=== PATIENT | female | born 1990 | race African-American/Black ===

== ENCOUNTER 2017-09-25 16:36 | Emergency (ER) | payer MEDICAID ==
[~2017-09-25] VITALS: Ht 170.2 cm; Wt 146.0 kg
[~2017-09-25 16:36] MED LIST: NAPR-56 PO; NO HOME MEDS
[2017-09-25 17:30] LABS: BASOPHILS # (AUTO) 0.1 X10'3 (0-0.2); BASOPHILS % (AUTO) 0.6 % (0-1); EOSINOPHILS # (AUTO) 0.2 X10'3 (0-0.9); EOSINOPHILS % (AUTO) 1.5 % (0-6); HEMATOCRIT 39.1 % (35.0-45.0); HEMOGLOBIN 13.1 g/dl (12.0-16.0); LYMPHOCYTES # (AUTO) 3.3 X10'3 (1.1-4.8); LYMPHOCYTES % (AUTO) 27.2 % (21-51); MEAN CORPUSCULAR HEMOGLOBIN 25.5 PG (27.0-31.0); MEAN CORPUSCULAR HGB CONC 33.4 % (33.0-36.5); MEAN CORPUSCULAR VOLUME 76.4 FL (78-98); MEAN PLATELET VOLUME 6.4 FL (7.4-10.4); MONOCYTES % (AUTO) 7.9 % (2-12); NEUTROPHILS # (AUTO) 7.6 X10'3 (1.8-7.7); NEUTROPHILS % (AUTO) 62.8 % (42-75); PLATELET COUNT 352 X10'3 (140-440); RED BLOOD COUNT 5.11 X10'6 (4.20-5.60); RED CELL DISTRIBUTION WIDTH 16.3 % (11.5-14.5); WHITE BLOOD COUNT 12.1 X10'3 (4.5-11.0)
[2017-09-25 17:34] LABS: URINE HCG NEGATIVE (NEG)
[2017-09-25] MEDS ORDERED: ondansetron/PF 4mg/2ml inj IV ONE (17:35)
[2017-09-25] MEDS ORDERED: morphine 5 MG/ML injection IV ONE (17:35)
[2017-09-25] MEDS ORDERED: normal saline 1000ML IV soln IVB ONE (17:35)
[2017-09-25 17:38] LABS: CLARITY,URINE CLEAR (Clear); COLOR,URINE YELLOW (Yellow); GLUCOSE, URINE NEGATIVE (Neg); KETONES,URINE TRACE mg/dl (Neg); LEUKOCYTE ESTERASE ,URINE NEGATIVE (Neg); NITRITES, URINE NEGATIVE (Neg); OCCULT BLOOD,URINE MODERATE (Neg); PROTEIN,URINE TRACE mg/dl (Neg)
[2017-09-25 17:40] LABS: INR 1.1 INR
[2017-09-25 17:41] LABS: UA COLLECTION TYPE NON-SPECIFIED
[2017-09-25 17:42] LABS: BACTERIA,URINE FEW /HPF (Neg); MUCUS STRANDS MODERATE /LPF (Neg); SQUAMOUS EPITHELIAL CELL,UR MODERATE /LPF (FEW); WBC,URINE 0-4 /HPF (0-4)
[2017-09-25 17:49] LABS: ALANINE AMINOTRANSFERASE 32 U/L (12-78); ALBUMIN 3.2 G/DL (3.4-5.0); ALBUMIN/GLOBULIN RATIO 0.7 (1.1-1.5); ALKALINE PHOSPHATASE 132 IU/L (46-116); ANION GAP 9 (8-16); ASPARTATE AMINO TRANSFERASE 14 U/L (10-37); BILIRUBIN,TOTAL 0.3 MG/DL (0.1-1.0); BLOOD UREA NITROGEN 10 MG/DL (7-18); BUN/CREATININE RATIO 11.1 (6.6-38.0); CALCIUM 9.1 MG/DL (8.5-10.1); CHLORIDE 110 MMOL/L (99-107); GLUCOSE 106 MG/DL (70-104); SODIUM 147 MMOL/L (135-145); TOTAL CARBON DIOXIDE 28.3 MMOL/L (24-32); TOTAL PROTEIN 7.8 G/DL (6.4-8.2); eGFR > 90 ML/MIN
[2017-09-25] MEDS ORDERED: morphine 2 MG/ML inj. syringe IV ONE (18:15)
[2017-09-25] MEDS ORDERED: doxycycline hyclate 100mg tablet.DR PO STA (18:49)
[2017-09-25] MEDS ORDERED: CefTRIAXone 250MG IM Kit w/LIDOcaine IM ONE (18:50)
[2017-09-25] MEDS ORDERED: DOXY100C43 PO (18:53)
[2017-09-25 19:43] VITALS: BP 117/62
== END 2017-09-25 20:00 | disposition home or self-care (01) ==
LOC: ER 16:37
DX: N73.9 Female pelvic inflammatory disease, unspecified (principal); Z88.6 Allergy status to analgesic agent; Z88.1 Allergy status to other antibiotic agents; Z88.0 Allergy status to penicillin
CPT/HCPCS: 36415; 80053; 81001; 81025; 85025; 85610; 87210; 87491; 87591; 96361; 96372; 96374; 99284; J0696; J2270; J2405

== ENCOUNTER 2017-09-26 21:19 | Emergency (ER) | payer MEDICAID ==
[~2017-09-26] VITALS: Ht 170.2 cm; Wt 147.0 kg
[~2017-09-26 21:19] MED LIST changes: +DOXY100C43 PO
[2017-09-26 23:21] LABS: HEMATOCRIT 39.4 % (35.0-45.0); HEMOGLOBIN 13.1 g/dl (12.0-16.0); MEAN CORPUSCULAR HEMOGLOBIN 25.8 PG (27.0-31.0); MEAN CORPUSCULAR HGB CONC 33.3 % (33.0-36.5); MEAN CORPUSCULAR VOLUME 77.5 FL (78-98); MEAN PLATELET VOLUME 6.4 FL (7.4-10.4); PLATELET COUNT 317 X10'3 (140-440); RED BLOOD COUNT 5.08 X10'6 (4.20-5.60); RED CELL DISTRIBUTION WIDTH 16.4 % (11.5-14.5); WHITE BLOOD COUNT 11.3 X10'3 (4.5-11.0)
[2017-09-26 23:35] LABS: ALANINE AMINOTRANSFERASE 30 U/L (12-78); ALBUMIN 3.1 G/DL (3.4-5.0); ALBUMIN/GLOBULIN RATIO 0.7 (1.1-1.5); ALKALINE PHOSPHATASE 130 IU/L (46-116); ANION GAP 7 (8-16); ASPARTATE AMINO TRANSFERASE 13 U/L (10-37); BILIRUBIN,TOTAL 0.3 MG/DL (0.1-1.0); BLOOD UREA NITROGEN 9 MG/DL (7-18); CHLORIDE 105 MMOL/L (99-107); GLUCOSE 127 MG/DL (70-104); POTASSIUM 3.5 MMOL/L (3.5-5.1); SODIUM 140 MMOL/L (135-145); TOTAL CARBON DIOXIDE 27.6 MMOL/L (24-32); TOTAL PROTEIN 7.4 G/DL (6.4-8.2); eGFR > 90 ML/MIN
[2017-09-26 23:55] LABS: TOTAL CELLS COUNTED 100
[2017-09-26 23:57] LABS: ANISOCYTOSIS 1+; PLATELET ESTIMATE NORMAL
[2017-09-26 23:58] LABS: SMUDGE CELLS FEW; TOXIC GRANULATION 1+
[2017-09-26 23:59] LABS: MICROCYTOSIS 1+
[2017-09-27] MEDS: normal saline 1000ML IV soln IVB ONE (00:10)
[2017-09-27] MEDS: ondansetron/PF 4mg/2ml inj IV ONE (00:11)
[2017-09-27] MEDS ORDERED: iohexol 300mg/ml 100ml inj. ONE (00:15)
[2017-09-27] MEDS: ibuprofen tablet 400 MG TABLET PO ONE (01:25)
[2017-09-27] MEDS: acetaminophen 325mg tablet PO ONE (01:25)
[2017-09-27 01:31] VITALS: BP 125/73
== END 2017-09-27 01:32 | disposition home or self-care (01) ==
LOC: ER 21:20
DX: N73.9 Female pelvic inflammatory disease, unspecified (principal); Z98.890 Other specified postprocedural states; Z88.0 Allergy status to penicillin; Z88.6 Allergy status to analgesic agent; Z88.1 Allergy status to other antibiotic agents; Z56.0 Unemployment, unspecified
CPT/HCPCS: 36415; 74177; 76830; 76856; 80053; 83605; 85025; 96361; 96374; 99285; J2405; J7030; Q9967

== ENCOUNTER 2018-03-15 18:26 | Emergency (ER) | payer MEDICAID ==
[~2018-03-15] VITALS: Ht 170.2 cm; Wt 127.5 kg
[~2018-03-15 18:26] MED LIST changes: -DOXY100C43 PO
[2018-03-15 18:29] VITALS: BP 131/73
[2018-03-15 20:16] LABS: URINE HCG NEGATIVE (NEG)
[2018-03-15] MEDS ORDERED: CYCL-1 PO (20:48)
[2018-03-15] MEDS ORDERED: IBUP-1984 PO (20:48)
== END 2018-03-15 20:57 | disposition home or self-care (01) ==
LOC: ER 18:27
DX: M54.5 Low back pain (principal); F17.200 Nicotine dependence, unspecified, uncomplicated; Z56.0 Unemployment, unspecified; Z90.89 Acquired absence of other organs; Z88.0 Allergy status to penicillin; Z88.1 Allergy status to other antibiotic agents; Z88.6 Allergy status to analgesic agent; Z79.899 Other long term (current) drug therapy
CPT/HCPCS: 72100; 81025; 99285

== ENCOUNTER 2018-09-29 15:11 | Emergency (ER) | payer MEDICAID ==
[~2018-09-29] VITALS: Ht 170.2 cm; Wt 131.8 kg
[~2018-09-29 15:11] MED LIST changes: +CYCL-1 PO
[2018-09-29 15:37] VITALS: BP 108/92
[2018-09-29] MEDS ORDERED: CLIN150C8 PO (18:51)
[2018-09-29] MEDS ORDERED: HYDROcodone/acetaminophen 10/325mg tab PO ONE (18:55)
== END 2018-09-29 19:11 | disposition home or self-care (01) ==
LOC: ER 15:12
DX: K08.89 Other specified disorders of teeth and supporting structures (principal); R11.0 Nausea; R42 Dizziness and giddiness; R50.9 Fever, unspecified; Z56.0 Unemployment, unspecified; Z88.6 Allergy status to analgesic agent; Z88.1 Allergy status to other antibiotic agents; Z88.0 Allergy status to penicillin
CPT/HCPCS: 99283

== ENCOUNTER 2019-01-05 09:23 | Emergency (ER) | payer MEDICAID ==
[~2019-01-05] VITALS: Ht 170.2 cm; Wt 113.0 kg
[~2019-01-05 09:23] MED LIST changes: +CLIN150C8 PO
[2019-01-05 10:12] LABS: BASOPHILS # (AUTO) 0.1 X10'3 (0-0.2); BASOPHILS % (AUTO) 0.7 % (0-1); EOSINOPHILS # (AUTO) 0.4 X10'3 (0-0.9); EOSINOPHILS % (AUTO) 5.2 % (0-6); HEMATOCRIT 38.7 % (35.0-45.0); LYMPHOCYTES # (AUTO) 2.7 X10'3 (1.1-4.8); LYMPHOCYTES % (AUTO) 32.3 % (21-51); MEAN CORPUSCULAR HEMOGLOBIN 27.8 PG (27.0-31.0); MEAN CORPUSCULAR HGB CONC 33.6 g/dL (33.0-36.5); MEAN PLATELET VOLUME 6.4 FL (7.4-10.4); MONOCYTES # (AUTO) 0.6 X10'3 (0-0.9); MONOCYTES % (AUTO) 7.7 % (2-12); NEUTROPHILS # (AUTO) 4.5 X10'3 (1.8-7.7); NEUTROPHILS % (AUTO) 54.1 % (42-75); PLATELET COUNT 292 X10'3 (140-440); RED BLOOD COUNT 4.66 X10'6 (4.20-5.60); RED CELL DISTRIBUTION WIDTH 14.9 % (11.5-14.5); WHITE BLOOD COUNT 8.3 X10'3 (4.5-11.0)
[2019-01-05] MEDS ORDERED: IBUP-1986 PO (10:12)
[2019-01-05 10:22] LABS: INR 1.1 INR
[2019-01-05 10:23] LABS: ALANINE AMINOTRANSFERASE 21 U/L (12-78); ALBUMIN 3.3 G/DL (3.4-5.0); ALBUMIN/GLOBULIN RATIO 0.9 (1.1-1.5); ALKALINE PHOSPHATASE 119 IU/L (46-116); ANION GAP 7 (8-16); ASPARTATE AMINO TRANSFERASE 12 U/L (10-37); BILIRUBIN,TOTAL 0.4 MG/DL (0.1-1.0); BLOOD UREA NITROGEN 10 MG/DL (7-18); BUN/CREATININE RATIO 13.9 (6.6-38.0); CHLORIDE 106 MMOL/L (99-107); CREATININE 0.72 MG/DL (0.40-0.90); GLUCOSE 91 MG/DL (70-104); SODIUM 138 MMOL/L (135-145); TOTAL CARBON DIOXIDE 25.3 MMOL/L (24-32); TOTAL PROTEIN 7.1 G/DL (6.4-8.2); eGFR > 90 ML/MIN
[2019-01-05 10:23] LABS: CLARITY,URINE CLEAR (Clear); COLOR,URINE STRAW (Yellow); GLUCOSE, URINE NEGATIVE (Neg); KETONES,URINE NEGATIVE (Neg); LEUKOCYTE ESTERASE ,URINE NEGATIVE (Neg); NITRITES, URINE NEGATIVE (Neg); OCCULT BLOOD,URINE TRACE-INTACT (Neg); PH,URINE 5.5 (4.8-8.0); PROTEIN,URINE NEGATIVE (Neg); URINE HCG NEGATIVE (NEG); UROBILINOGEN,URINE 0.2 E.U/dL (0.2-1.0)
[2019-01-05 10:34] LABS: UA COLLECTION TYPE CLN CATCH MIDSTREAM
[2019-01-05 10:35] LABS: BACTERIA,URINE FEW /HPF (Neg); RBC,URINE 0-2 /HPF (0-2); SQUAMOUS EPITHELIAL CELL,UR FEW /LPF (FEW); WBC,URINE 0-4 /HPF (0-4)
[2019-01-05] MEDS ORDERED: morphine 4 MG/ML inj SYRINge IV ONE (10:40)
[2019-01-05] MEDS ORDERED: iohexol 300mg/ml 100ml inj. ONE (10:40)
[2019-01-05] MEDS ORDERED: diphenhydrAMINE 50 mg/ml inj IV ONE (11:05)
[2019-01-05 11:28] VITALS: BP 116/76
== END 2019-01-05 11:29 | disposition home or self-care (01) ==
LOC: ER 09:24
DX: R10.32 Left lower quadrant pain (principal); R11.10 Vomiting, unspecified; R20.0 Anesthesia of skin; F12.90 Cannabis use, unspecified, uncomplicated; Z56.0 Unemployment, unspecified; Z88.6 Allergy status to analgesic agent; Z88.1 Allergy status to other antibiotic agents; Z88.0 Allergy status to penicillin
CPT/HCPCS: 36415; 74177; 80053; 81001; 81025; 85025; 85610; 96374; 96375; 99284; J1200; J2270; Q9967

== ENCOUNTER 2022-10-04 12:24 | Emergency (ER) | payer MEDICAID ==
[~2022-10-04] VITALS: Ht 170.2 cm; Wt 145.0 kg
[~2022-10-04 12:24] MED LIST changes: -CLIN150C8 PO; -CYCL-1 PO; +IBUP-1986 PO; -NAPR-56 PO; -NO HOME MEDS
[2022-10-04 13:32] VITALS: BP 116/67
[2022-10-04] MEDS ORDERED: HYDROcodone/acetaminophen 5mg/325mg tablet PO ONE (14:50)
[2022-10-04] MEDS ORDERED: HYDR-3965 PO (14:59)
== END 2022-10-04 15:10 | disposition home or self-care (01) ==
LOC: ER 12:25
DX: M25.551 Pain in right hip (principal); M25.561 Pain in right knee; F12.90 Cannabis use, unspecified, uncomplicated; F31.9 Bipolar disorder, unspecified; Z56.0 Unemployment, unspecified; Z72.89 Other problems related to lifestyle; Z90.89 Acquired absence of other organs; Z88.0 Allergy status to penicillin; Z88.1 Allergy status to other antibiotic agents; Z88.6 Allergy status to analgesic agent; Z79.899 Other long term (current) drug therapy; W18.39XA Other fall on same level, initial encounter; Y93.89 Activity, other specified; Y92.89 Other specified places as the place of occurrence of the external cause; Y99.8 Other external cause status
CPT/HCPCS: 73502; 73564; 99284; A6449

== ENCOUNTER 2022-12-30 11:35 | Emergency (ER) | payer MEDICAID ==
[~2022-12-30] VITALS: Ht 170.2 cm; Wt 130.6 kg
[2022-12-30 12:11] VITALS: BP 134/70
[2022-12-30] MEDS ORDERED: morphine 2 MG/ML inj. syringe IV ONE (12:25)
[2022-12-30] MEDS ORDERED: ondansetron/PF 4mg/2ml inj IV ONE (12:25)
[2022-12-30 12:27] LABS: CLARITY,URINE CLEAR (Clear); COLOR,URINE YELLOW (Yellow); GLUCOSE, URINE NEGATIVE (Neg); KETONES,URINE NEGATIVE (Neg); LEUKOCYTE ESTERASE ,URINE NEGATIVE (Neg); NITRITES, URINE NEGATIVE (Neg); OCCULT BLOOD,URINE TRACE-INTACT (Neg); PROTEIN,URINE NEGATIVE (Neg); UROBILINOGEN,URINE 0.2 E.U/dL (0.2-1.0)
[2022-12-30 12:28] LABS: URINE HCG NEGATIVE (NEG)
[2022-12-30 12:35] LABS: UA COLLECTION TYPE CLN CATCH MIDSTREAM
[2022-12-30 12:36] LABS: BACTERIA,URINE FEW /HPF (Neg); MUCUS STRANDS NONE SEEN /LPF (Neg); RBC,URINE 0-2 /HPF (0-2); SQUAMOUS EPITHELIAL CELL,UR MODERATE /LPF (FEW); WBC,URINE 0-4 /HPF (0-4)
[2022-12-30 13:53] LABS: BASOPHILS % (AUTO) 0.6 % (0-1); EOSINOPHILS # (AUTO) 0.2 X10'3 (0-0.9); EOSINOPHILS % (AUTO) 2.1 % (0-6); HEMATOCRIT 36.8 % (35.0-45.0); HEMOGLOBIN 11.7 g/dl (12.0-16.0); LYMPHOCYTES # (AUTO) 3.1 X10'3 (1.1-4.8); LYMPHOCYTES % (AUTO) 43.6 % (21-51); MEAN CORPUSCULAR HEMOGLOBIN 24.5 PG (27.0-31.0); MEAN CORPUSCULAR HGB CONC 31.9 g/dL (33.0-36.5); MEAN CORPUSCULAR VOLUME 76.7 FL (78-98); MEAN PLATELET VOLUME 6.3 FL (7.4-10.4); MONOCYTES # (AUTO) 0.6 X10'3 (0-0.9); MONOCYTES % (AUTO) 8.4 % (2-12); NEUTROPHILS # (AUTO) 3.2 X10'3 (1.8-7.7); NEUTROPHILS % (AUTO) 45.3 % (42-75); PLATELET COUNT 298 X10'3 (140-440); RED CELL DISTRIBUTION WIDTH 16.2 % (11.5-14.5)
[2022-12-30 14:07] LABS: ALANINE AMINOTRANSFERASE 30 U/L (12-78); ALBUMIN/GLOBULIN RATIO 0.8 (1.1-1.5); ALKALINE PHOSPHATASE 100 IU/L (46-116); ANION GAP 8 (8-16); ASPARTATE AMINO TRANSFERASE 19 U/L (10-37); BILIRUBIN,TOTAL 0.3 MG/DL (0.1-1.0); BLOOD UREA NITROGEN 7 MG/DL (7-18); BUN/CREATININE RATIO 10.1 (10.0-20.0); CALCIUM 8.8 MG/DL (8.5-10.1); CHLORIDE 106 MMOL/L (99-107); CREATININE 0.69 MG/DL (0.40-0.90); GLUCOSE 96 MG/DL (70-104); POTASSIUM 3.4 MMOL/L (3.5-5.1); SODIUM 142 MMOL/L (135-145); TOTAL CARBON DIOXIDE 27.7 MMOL/L (24-32); eGFR > 90 ML/MIN
[2022-12-30 14:15] LABS: BETA HCG,QUANTITATIVE < 1.0 mIU/ml; LIPASE 115 U/L (73-393)
[2022-12-30 14:17] LABS: BILIRUBIN,DIRECT 0.1 MG/DL (0-0.3)
[2022-12-30] MEDS ORDERED: ONDA4TAB12 PO (18:22)
[2022-12-30] MEDS ORDERED: HYDR-3965 PO (18:22)
== END 2022-12-30 18:39 | disposition home or self-care (01) ==
LOC: ER 11:36
DX: R10.11 Right upper quadrant pain (principal); F31.9 Bipolar disorder, unspecified; F12.90 Cannabis use, unspecified, uncomplicated; Z88.0 Allergy status to penicillin; Z88.1 Allergy status to other antibiotic agents; Z56.0 Unemployment, unspecified
CPT/HCPCS: 36415; 74176; 76700; 80053; 81001; 81025; 82248; 83690; 84145; 84702; 85025; 96374; 96375; 99285; J2270; J2405

== ENCOUNTER 2023-04-18 17:22 | Emergency (ER) | payer OTHER, MEDICAID ==
[~2023-04-18] VITALS: Ht 170.2 cm; Wt 137.6 kg
[~2023-04-18 17:22] MED LIST changes: +ONDA4TAB12 PO
[2023-04-18 17:28] VITALS: TEMP 98.3
[2023-04-18] MEDS ORDERED: acetaminophen 325mg tablet PO ONE (19:55)
[2023-04-18] MEDS ORDERED: ACET-1025 PO (19:58)
[2023-04-18 20:08] VITALS: BP 138/85; PULSE 72; RESP 16; O2SAT 100
== END 2023-04-18 20:11 | disposition home or self-care (01) ==
LOC: ER 17:23
DX: S63.501A Unspecified sprain of right wrist, initial encounter (principal); F12.90 Cannabis use, unspecified, uncomplicated; Z88.0 Allergy status to penicillin; Z88.1 Allergy status to other antibiotic agents; Z79.82 Long term (current) use of aspirin; Z98.890 Other specified postprocedural states; X58.XXXA Exposure to other specified factors, initial encounter; Y93.89 Activity, other specified; Y92.89 Other specified places as the place of occurrence of the external cause; Y99.8 Other external cause status
CPT/HCPCS: 29125; 73110; 73130; 99284

== ENCOUNTER 2023-09-07 13:44 | Emergency (ER) | payer OTHER, MEDICAID ==
[~2023-09-07] VITALS: Ht 170.2 cm; Wt 138.0 kg
[2023-09-07 14:00] VITALS: BP 128/91; PULSE 78; RESP 16; TEMP 98.3; O2SAT 100
[2023-09-07 14:55] LABS: BASOPHILS # (AUTO) 0.1 X10'3 (0-0.2); EOSINOPHILS # (AUTO) 0.2 X10'3 (0-0.9); EOSINOPHILS % (AUTO) 2.2 % (0-6); HEMATOCRIT 38.3 % (35.0-45.0); HEMOGLOBIN 12.6 g/dl (12.0-16.0); LYMPHOCYTES # (AUTO) 2.9 X10'3 (1.1-4.8); LYMPHOCYTES % (AUTO) 31.1 % (21-51); MEAN CORPUSCULAR HEMOGLOBIN 25.8 PG (27.0-31.0); MEAN CORPUSCULAR HGB CONC 32.9 g/dL (33.0-36.5); MEAN CORPUSCULAR VOLUME 78.5 FL (78-98); MEAN PLATELET VOLUME 6.2 FL (7.4-10.4); MONOCYTES # (AUTO) 0.7 X10'3 (0-0.9); MONOCYTES % (AUTO) 7.2 % (2-12); NEUTROPHILS # (AUTO) 5.4 X10'3 (1.8-7.7); NEUTROPHILS % (AUTO) 58.5 % (42-75); PLATELET COUNT 338 X10'3 (140-440); RED BLOOD COUNT 4.88 X10'6 (4.20-5.60); RED CELL DISTRIBUTION WIDTH 16.1 % (11.5-14.5); WHITE BLOOD COUNT 9.3 X10'3 (4.5-11.0)
[2023-09-07 14:57] LABS: BILIRUBIN,URINE NEGATIVE (Neg); CLARITY,URINE CLOUDY (Clear); COLOR,URINE YELLOW (Yellow); GLUCOSE, URINE NEGATIVE (Neg); KETONES,URINE NEGATIVE (Neg); LEUKOCYTE ESTERASE ,URINE NEGATIVE (Neg); NITRITES, URINE NEGATIVE (Neg); OCCULT BLOOD,URINE LARGE (Neg); PROTEIN,URINE NEGATIVE (Neg); UROBILINOGEN,URINE 0.2 E.U/dL (0.2-1.0)
[2023-09-07 15:01] LABS: URINE HCG NEGATIVE (NEG)
[2023-09-07 15:06] LABS: UA COLLECTION TYPE CLN CATCH MIDSTREAM
[2023-09-07 15:07] LABS: HYALINE CASTS 0-3 /LPF (NEGATIVE); MUCUS STRANDS MODERATE /LPF (Neg); SQUAMOUS EPITHELIAL CELL,UR FEW /LPF (FEW)
[2023-09-07 15:08] LABS: AMORPHOUS PHOSPHATES 3+; RBC,URINE TNTC /HPF (0-2)
[2023-09-07 15:09] LABS: BACTERIA,URINE FEW /HPF (Neg); WBC,URINE 0-4 /HPF (0-4)
[2023-09-07 15:12] LABS: ALANINE AMINOTRANSFERASE 20 U/L (12-78); ALBUMIN 2.8 G/DL (3.4-5.0); ALBUMIN/GLOBULIN RATIO 0.6 (1.1-1.5); ALKALINE PHOSPHATASE 107 IU/L (46-116); ANION GAP 9 (8-16); ASPARTATE AMINO TRANSFERASE 16 U/L (10-37); BILIRUBIN,TOTAL 0.3 MG/DL (0.1-1.0); BLOOD UREA NITROGEN 6 MG/DL (7-18); BUN/CREATININE RATIO 7.1 (10.0-20.0); CALCIUM 8.8 MG/DL (8.5-10.1); CHLORIDE 102 MMOL/L (99-107); CREATININE 0.84 MG/DL (0.40-0.90); GLUCOSE 103 MG/DL (70-104); POTASSIUM 3.6 MMOL/L (3.5-5.1); SODIUM 137 MMOL/L (135-145); TOTAL CARBON DIOXIDE 25.6 MMOL/L (24-32); TOTAL PROTEIN 7.4 G/DL (6.4-8.2); eCRCL 94 ML/MIN; eGFR > 90 ML/MIN
[2023-09-07 15:25] LABS: LIPASE 27 U/L (16-77)
[2023-09-07 15:59] LABS: BETA HCG,QUANTITATIVE < 1.0 mIU/ml
== END 2023-09-07 18:13 | disposition left against medical advice (07) ==
LOC: ER 13:44
DX: N93.9 Abnormal uterine and vaginal bleeding, unspecified (principal); M25.552 Pain in left hip; R10.9 Unspecified abdominal pain; Z53.21 Procedure and treatment not carried out due to patient leaving prior to being seen by health care provider
CPT/HCPCS: 36415; 80053; 81001; 81025; 83690; 84702; 85025; 99281

== ENCOUNTER 2023-10-12 11:05 | Emergency (ER) | payer MEDICAID, OTHER ==
[~2023-10-12] VITALS: Ht 177.8 cm; Wt 136.8 kg
[2023-10-12 11:25] VITALS: BP 123/93; PULSE 76; RESP 18; TEMP 97; O2SAT 99
[2023-10-12] MEDS ORDERED: SODI354S PO (12:31)
[2023-10-12] MEDS ORDERED: DOCU-148 PO (12:31)
== END 2023-10-12 12:52 | disposition home or self-care (01) ==
LOC: ER 11:06
DX: K59.00 Constipation, unspecified (principal); F12.90 Cannabis use, unspecified, uncomplicated; F31.9 Bipolar disorder, unspecified; Z56.0 Unemployment, unspecified; Z88.0 Allergy status to penicillin; Z88.6 Allergy status to analgesic agent; Z79.899 Other long term (current) drug therapy; Z79.1 Long term (current) use of non-steroidal anti-inflammatories (NSAID)
CPT/HCPCS: 74018; 99283

== ENCOUNTER 2023-12-12 12:43 | Emergency (ER) | payer MEDICAID ==
[~2023-12-12] VITALS: Ht 175.3 cm; Wt 118.2 kg
[~2023-12-12 12:43] MED LIST changes: +DOCU-148 PO; +SODI354S PO
[2023-12-12 13:14] VITALS: BP 134/89; PULSE 116; RESP 18; TEMP 97.2; O2SAT 98
== END 2023-12-12 18:21 | disposition left against medical advice (07) ==
LOC: ER 12:43
DX: R10.9 Unspecified abdominal pain (principal); R50.9 Fever, unspecified; R11.2 Nausea with vomiting, unspecified; Z53.21 Procedure and treatment not carried out due to patient leaving prior to being seen by health care provider
CPT/HCPCS: 99281

== ENCOUNTER 2023-12-19 11:56 | Outpatient (CLI) | payer MEDICAID | END 2023-12-19 23:59 | disposition home or self-care (01) | LOC: RAD 11:56 | DX: R05.9 Cough, unspecified (principal) | CPT/HCPCS: 71046 ==

== ENCOUNTER 2024-05-13 20:19 | Emergency (ER) | payer MEDICAID ==
[~2024-05-13] VITALS: Ht 170.2 cm; Wt 141.9 kg
[~2024-05-13 20:19] MED LIST changes: +ONDA-243 PO; -ONDA4TAB12 PO
[2024-05-13 20:59] LABS: BASOPHILS # (AUTO) 0.1 X10'3 (0-0.2); BASOPHILS % (AUTO) 0.7 % (0-1); EOSINOPHILS # (AUTO) 0.3 X10'3 (0-0.9); EOSINOPHILS % (AUTO) 2.3 % (0-6); HEMATOCRIT 39.9 % (35.0-45.0); HEMOGLOBIN 12.7 g/dl (12.0-16.0); LYMPHOCYTES # (AUTO) 3.8 X10'3 (1.1-4.8); MEAN CORPUSCULAR HGB CONC 31.8 g/dL (33.0-36.5); MEAN CORPUSCULAR VOLUME 78.5 FL (78-98); MEAN PLATELET VOLUME 6.3 FL (7.4-10.4); MONOCYTES % (AUTO) 8.2 % (2-12); NEUTROPHILS # (AUTO) 6.7 X10'3 (1.8-7.7); NEUTROPHILS % (AUTO) 56.8 % (42-75); PLATELET COUNT 348 X10'3 (140-440); RED BLOOD COUNT 5.08 X10'6 (4.20-5.60); RED CELL DISTRIBUTION WIDTH 16.3 % (11.5-14.5); WHITE BLOOD COUNT 11.8 X10'3 (4.5-11.0)
[2024-05-13 21:13] LABS: ALANINE AMINOTRANSFERASE 20 U/L (12-78); ALBUMIN 2.9 G/DL (3.4-5.0); ALBUMIN/GLOBULIN RATIO 0.7 (1.1-1.5); ALKALINE PHOSPHATASE 107 IU/L (46-116); ANION GAP 8 (8-16); ASPARTATE AMINO TRANSFERASE 18 U/L (10-37); BILIRUBIN,TOTAL 0.3 MG/DL (0.1-1.0); BLOOD UREA NITROGEN 12 MG/DL (7-18); BUN/CREATININE RATIO 12.6 (10.0-20.0); CALCIUM 9.2 MG/DL (8.5-10.1); CHLORIDE 107 MMOL/L (99-107); CREATININE 0.95 MG/DL (0.40-0.90); GLUCOSE 110 MG/DL (70-104); LIPASE 36 U/L (16-77); POTASSIUM 3.9 MMOL/L (3.5-5.1); SODIUM 142 MMOL/L (135-145); TOTAL CARBON DIOXIDE 27.4 MMOL/L (24-32); TOTAL PROTEIN 7.1 G/DL (6.4-8.2); eCRCL 82 ML/MIN; eGFR 82 ML/MIN
[2024-05-13 21:33] LABS: URINE HCG NEGATIVE (NEG)
[2024-05-13 21:36] LABS: BILIRUBIN,URINE NEGATIVE (Neg); CLARITY,URINE SLIGHTLY CLOUDY (Clear); COLOR,URINE YELLOW (Yellow); GLUCOSE, URINE NEGATIVE (Neg); KETONES,URINE NEGATIVE (Neg); LEUKOCYTE ESTERASE ,URINE NEGATIVE (Neg); NITRITES, URINE NEGATIVE (Neg); OCCULT BLOOD,URINE MODERATE (Neg); PROTEIN,URINE NEGATIVE (Neg); UROBILINOGEN,URINE 0.2 E.U/dL (0.2-1.0)
[2024-05-13 21:40] LABS: UA COLLECTION TYPE CLN CATCH MIDSTREAM
[2024-05-13 21:53] LABS: SQUAMOUS EPITHELIAL CELL,UR MODERATE /LPF (FEW)
[2024-05-13 21:54] LABS: BACTERIA,URINE FEW /HPF (Neg); WBC,URINE 0-4 /HPF (0-4)
[2024-05-13 21:57] LABS: AMORPHOUS PHOSPHATES 2+
[2024-05-13 22:11] VITALS: TEMP 97.9; O2SAT 99
[2024-05-13] MEDS ORDERED: MICO45CR46 VG (23:53)
[2024-05-13] MEDS ORDERED: ketorolac trometh 15mg/ml vial 15 MG/ML ML IM ONE (23:55)
[2024-05-14] MEDS: ketorolac trometh 30MG/ML vial 30 MG/ML VIAL IM ONE (00:17)
[2024-05-14 00:22] VITALS: BP 158/78; PULSE 80; RESP 16
== END 2024-05-14 00:24 | disposition home or self-care (01) ==
LOC: ER 20:20
DX: E28.2 Polycystic ovarian syndrome (principal); R10.9 Unspecified abdominal pain; F12.90 Cannabis use, unspecified, uncomplicated; F31.9 Bipolar disorder, unspecified; Z88.0 Allergy status to penicillin; Z88.1 Allergy status to other antibiotic agents; Z88.6 Allergy status to analgesic agent; Z79.899 Other long term (current) drug therapy; Z79.1 Long term (current) use of non-steroidal anti-inflammatories (NSAID); Z98.890 Other specified postprocedural states
CPT/HCPCS: 36415; 76856; 80053; 81001; 81025; 83690; 85025; 93976; 96372; 99285; J1885

== ENCOUNTER 2024-08-10 01:25 | Emergency (ER) | payer MEDICAID ==
[~2024-08-10] VITALS: Ht 170.2 cm; Wt 136.4 kg
[2024-08-10 01:31] VITALS: BP 144/89; PULSE 77; O2SAT 98
[2024-08-10] MEDS ORDERED: HYDR-3965 PO (02:51)
[2024-08-10] MEDS ORDERED: CLIN-214 PO (02:51)
[2024-08-10 03:08] VITALS: TEMP 98.5
[2024-08-10 03:11] VITALS: RESP 18
[2024-08-10] MEDS: HYDROcodone/acetaminophen 5mg/325mg tablet PO ONE (03:11)
[2024-08-10] MEDS: clindamycin 150mg capsule PO ONE (03:11)
[2024-08-10] MEDS: ondansetron 4mg rapidly disintigrating tab PO ONE (03:12)
== END 2024-08-10 03:13 | disposition home or self-care (01) ==
LOC: ER 01:26
DX: K13.79 Other lesions of oral mucosa (principal); F12.90 Cannabis use, unspecified, uncomplicated; F31.9 Bipolar disorder, unspecified; F10.90 Alcohol use, unspecified, uncomplicated; Z88.0 Allergy status to penicillin; Z88.6 Allergy status to analgesic agent; Z90.89 Acquired absence of other organs
CPT/HCPCS: 99284

== ENCOUNTER 2024-09-23 23:05 | Emergency (ER) | payer MEDICAID ==
[~2024-09-23] VITALS: Ht 170.2 cm; Wt 138.6 kg
[~2024-09-23 23:05] MED LIST changes: +CLIN-214 PO
[2024-09-23 23:07] VITALS: BP 129/94; PULSE 112; RESP 19; TEMP 98.2; O2SAT 99
[2024-09-24] MEDS: normal saline 1000ml 1,000 ML IV ONE (00:52)
[2024-09-24] MEDS: ondansetron 4mg rapidly disintigrating tab PO ONE (01:10)
[2024-09-24] MEDS: dicyclomine 10 MG capsule PO ONE (01:11)
[2024-09-24 01:12] LABS: BILIRUBIN,URINE NEGATIVE (Neg); CLARITY,URINE CLEAR (Clear); COLOR,URINE YELLOW (Yellow); GLUCOSE, URINE NEGATIVE (Neg); KETONES,URINE NEGATIVE (Neg); LEUKOCYTE ESTERASE ,URINE NEGATIVE (Neg); NITRITES, URINE NEGATIVE (Neg); OCCULT BLOOD,URINE MODERATE (Neg); PROTEIN,URINE NEGATIVE (Neg); UROBILINOGEN,URINE 0.2 E.U/dL (0.2-1.0)
[2024-09-24] MEDS: ketorolac trometh 30MG/ML vial 30 MG/ML VIAL IV ONE (01:14)
[2024-09-24] MEDS: dicyclomine 10mg/5ml oral solution 5ml UD bottle PO ONE (01:15)
[2024-09-24 01:17] LABS: BASOPHILS # (AUTO) 0.1 X10'3 (0-0.2); BASOPHILS % (AUTO) 0.9 % (0-1); EOSINOPHILS # (AUTO) 0.2 X10'3 (0-0.9); EOSINOPHILS % (AUTO) 2.8 % (0-6); HEMATOCRIT 37.7 % (35.0-45.0); HEMOGLOBIN 12.3 g/dl (12.0-16.0); LYMPHOCYTES # (AUTO) 3.6 X10'3 (1.1-4.8); LYMPHOCYTES % (AUTO) 43.9 % (21-51); MEAN CORPUSCULAR HEMOGLOBIN 25.4 PG (27.0-31.0); MEAN CORPUSCULAR HGB CONC 32.6 g/dL (33.0-36.5); MEAN CORPUSCULAR VOLUME 78.1 FL (78-98); MEAN PLATELET VOLUME 6.2 FL (7.4-10.4); MONOCYTES # (AUTO) 0.5 X10'3 (0-0.9); MONOCYTES % (AUTO) 6.2 % (2-12); NEUTROPHILS # (AUTO) 3.7 X10'3 (1.8-7.7); NEUTROPHILS % (AUTO) 46.2 % (42-75); PLATELET COUNT 351 X10'3 (140-440); RED BLOOD COUNT 4.83 X10'6 (4.20-5.60); RED CELL DISTRIBUTION WIDTH 15.6 % (11.5-14.5); WHITE BLOOD COUNT 8.1 X10'3 (4.5-11.0)
[2024-09-24 01:17] LABS: SQUAMOUS EPITHELIAL CELL,UR FEW /LPF (FEW); UA COLLECTION TYPE VOIDED
[2024-09-24 01:18] LABS: BACTERIA,URINE FEW /HPF (Neg); WBC,URINE 0-4 /HPF (0-4)
[2024-09-24 01:30] LABS: ALANINE AMINOTRANSFERASE 18 U/L (12-78); ALBUMIN 2.8 G/DL (3.4-5.0); ALBUMIN/GLOBULIN RATIO 0.6 (1.1-1.5); ALKALINE PHOSPHATASE 129 IU/L (46-116); ANION GAP 8 (8-16); ASPARTATE AMINO TRANSFERASE 13 U/L (10-37); BILIRUBIN,DIRECT 0.1 MG/DL (0-0.3); BILIRUBIN,TOTAL 0.3 MG/DL (0.1-1.0); BLOOD UREA NITROGEN 11 MG/DL (7-18); BUN/CREATININE RATIO 14.7 (10.0-20.0); CALCIUM 8.7 MG/DL (8.5-10.1); CHLORIDE 104 MMOL/L (99-107); CREATININE 0.75 MG/DL (0.40-0.90); GLUCOSE 109 MG/DL (70-104); LIPASE 32 U/L (16-77); POTASSIUM 3.9 MMOL/L (3.5-5.1); SODIUM 138 MMOL/L (135-145); TOTAL CARBON DIOXIDE 26.1 MMOL/L (24-32); TOTAL PROTEIN 7.4 G/DL (6.4-8.2); eCRCL 104 ML/MIN; eGFR > 90 ML/MIN
[2024-09-24 01:55] LABS: URINE HCG NEGATIVE (NEG)
== END 2024-09-24 03:30 | disposition left against medical advice (07) ==
LOC: ER 23:06
DX: R10.32 Left lower quadrant pain (principal); F17.200 Nicotine dependence, unspecified, uncomplicated; F12.90 Cannabis use, unspecified, uncomplicated; F31.9 Bipolar disorder, unspecified; Z88.0 Allergy status to penicillin; Z88.6 Allergy status to analgesic agent; Z90.89 Acquired absence of other organs; Z88.1 Allergy status to other antibiotic agents; Z79.899 Other long term (current) drug therapy; Z56.0 Unemployment, unspecified
CPT/HCPCS: 36415; 74176; 80048; 80076; 81001; 81025; 83690; 85025; 96374; 99285; J1885